=== PATIENT | male | born 1995 | race Caucasian/White ===

== ENCOUNTER → 2018-03-12 | Outpatient (CLI) | payer OTHER | END | disposition home or self-care (01) | LOC: LAB SRC 16:15 → LAB SHORT 16:15 | DX: Z51.81 Encounter for therapeutic drug level monitoring (principal); Z79.899 Other long term (current) drug therapy | CPT/HCPCS: G0480 ==

== ENCOUNTER → 2018-04-02 | Outpatient (CLI) | payer OTHER | LOC: LAB SHORT 08:45 → LAB SRC 08:45 | DX: Z51.81 Encounter for therapeutic drug level monitoring (principal); Z79.899 Other long term (current) drug therapy | CPT/HCPCS: G0480 ==

== ENCOUNTER → 2018-04-16 | Outpatient (CLI) | payer OTHER | END | disposition home or self-care (01) | LOC: LAB SHORT 07:34 → LAB SRC 07:34 | DX: Z51.81 Encounter for therapeutic drug level monitoring (principal); F12.10 Cannabis abuse, uncomplicated; Z79.899 Other long term (current) drug therapy | CPT/HCPCS: G0480 ==

== ENCOUNTER 2018-08-06 20:01 | Emergency (ER) | payer OTHER ==
[~2018-08-06] VITALS: Ht 180.3 cm; Wt 72.6 kg
[2018-08-06] MEDS ORDERED: SUBOXONE 12 MG1 EACH (20:11)
[2018-08-06] MEDS ORDERED: Bactrim Ds Tab1 EACH PO (20:15)
== END 2018-08-06 20:21 | disposition home or self-care (01) ==
LOC: ER 20:01
DX: L02.01 Cutaneous abscess of face (principal); L03.211 Cellulitis of face; Z79.899 Other long term (current) drug therapy; F17.290 Nicotine dependence, other tobacco product, uncomplicated
CPT/HCPCS: 99283